=== PATIENT | female | born 1970 | race Caucasian/White ===

== ENCOUNTER 2019-12-25 20:16 | Emergency (ER) | payer MEDICAID ==
[~2019-12-25] VITALS: Ht 167.6 cm; Wt 65.9 kg
[2019-12-25 20:23] VITALS: BP 144/110
[2019-12-25 22:57] LABS: MEAN PLATELET VOLUME 8.1 FL (7.4-10.4); WHITE BLOOD COUNT 4.2 X10'3 (4.5-11.0)
[2019-12-25 22:59] LABS: ALANINE AMINOTRANSFERASE 50 U/L (12-78); ALBUMIN 3.7 G/DL (3.4-5.0); ALBUMIN/GLOBULIN RATIO 0.9 (1.1-1.5); ALKALINE PHOSPHATASE 96 IU/L (46-116); ANION GAP 14 (8-16); ASPARTATE AMINO TRANSFERASE 64 U/L (10-37); BILIRUBIN,TOTAL 0.5 MG/DL (0.1-1.0); BLOOD UREA NITROGEN 11 MG/DL (7-18); BUN/CREATININE RATIO 17.7 (6.6-38.0); CALCIUM 8.1 MG/DL (8.5-10.1); CHLORIDE 102 MMOL/L (99-107); CREATININE 0.62 MG/DL (0.40-0.90); GLUCOSE 87 MG/DL (70-104); HEMATOCRIT 41.3 % (35.0-45.0); MEAN CORPUSCULAR HEMOGLOBIN 32.4 PG (27.0-31.0); MEAN CORPUSCULAR HGB CONC 33.8 g/dL (33.0-36.5); MEAN CORPUSCULAR VOLUME 95.8 FL (78-98); PLATELET COUNT 83 X10'3 (140-440); POTASSIUM 4.2 MMOL/L (3.5-5.1); RED BLOOD COUNT 4.31 X10'6 (4.20-5.60); RED CELL DISTRIBUTION WIDTH 16.2 % (11.5-14.5); SODIUM 137 MMOL/L (135-145); TOTAL CARBON DIOXIDE 21.2 MMOL/L (24-32); eGFR > 90 ML/MIN
[2019-12-25 23:17] LABS: ANISOCYTOSIS 1+; PLATELET ESTIMATE DECREASED; TOTAL CELLS COUNTED 100
== END 2019-12-25 22:42 | disposition home or self-care (01) ==
LOC: ER 20:17
DX: R23.3 Spontaneous ecchymoses (principal); R21 Rash and other nonspecific skin eruption; Z88.2 Allergy status to sulfonamides; Z88.8 Allergy status to other drugs, medicaments and biological substances
CPT/HCPCS: 36415; 80053; 85007; 85025; 85610; 99283

== ENCOUNTER 2021-03-08 04:28 | Emergency (ER) | payer MEDICAID ==
[~2021-03-08] VITALS: Ht 168.9 cm; Wt 65.9 kg
[2021-03-08 04:33] VITALS: BP 155/86
[2021-03-08] MEDS ORDERED: normal saline 1000ML IV soln IVB STA (04:59)
[2021-03-08] MEDS ORDERED: diphenhydrAMINE 50 mg/ml inj IV ONE (05:00)
[2021-03-08] MEDS ORDERED: famotidine/PF 10 mg/ml inj IV ONE (05:00)
[2021-03-08] MEDS ORDERED: epiNEPHrine 1 mg/ml inj SQ ONE (05:00)
[2021-03-08] MEDS: methylPREDNISolone sod succ 125mg/2ml vial IV ONE ×2 (05:11→05:48)
[2021-03-08] MEDS ORDERED: AMLO10TA48 PO (06:04)
== END 2021-03-08 06:20 | disposition home or self-care (01) ==
LOC: ER 04:28
DX: T78.3XXA Angioneurotic edema, initial encounter (principal); I10 Essential (primary) hypertension; J45.909 Unspecified asthma, uncomplicated; Z88.2 Allergy status to sulfonamides; Z88.8 Allergy status to other drugs, medicaments and biological substances
CPT/HCPCS: 96372; 96374; 96375; 99284; J0171; J1200; J3490; J7030; J2930

== ENCOUNTER 2021-07-03 21:59 | Inpatient (IN) | payer MEDICAID ==
[~2021-07-03] VITALS: Ht 167.6 cm; Wt 65.4 kg
[~2021-07-03 21:59] MED LIST: AMLO10TA48 PO
[2021-07-03 23:35] LABS: ALANINE AMINOTRANSFERASE 25 U/L (12-78); ALBUMIN 2.7 G/DL (3.4-5.0); ALBUMIN/GLOBULIN RATIO 0.6 (1.1-1.5); ALKALINE PHOSPHATASE 83 IU/L (46-116); ASPARTATE AMINO TRANSFERASE 57 U/L (10-37); BILIRUBIN,TOTAL 1.4 MG/DL (0.1-1.0); BLOOD UREA NITROGEN 10 MG/DL (7-18); BUN/CREATININE RATIO 6.3 (6.6-38.0); CALCIUM 6.2 MG/DL (8.5-10.1); CHLORIDE 64 MMOL/L (99-107); CREATININE 1.58 MG/DL (0.40-0.90); GLUCOSE 108 MG/DL (70-104); TOTAL PROTEIN 6.9 G/DL (6.4-8.2); eGFR 34 ML/MIN
[2021-07-03 23:50] LABS: ANION GAP -2 (8-16)
[2021-07-03 23:54] LABS: POTASSIUM 1.3 MMOL/L (3.5-5.1); SODIUM 110 MMOL/L (135-145); TOTAL CARBON DIOXIDE 48.4 MMOL/L (24-32)
[2021-07-04] VITALS (13 sets, daily range): BP systolic 104–140; BP diastolic 59–83
[2021-07-04 00:08] LABS: BASOPHILS % (AUTO) 0.1 % (0-1); EOSINOPHILS % (AUTO) 0.4 % (0-6); HEMATOCRIT 26.8 % (35.0-45.0); HEMOGLOBIN 9.7 g/dl (12.0-16.0); LYMPHOCYTES # (AUTO) 0.5 X10'3 (1.1-4.8); MEAN CORPUSCULAR HEMOGLOBIN 31.3 PG (27.0-31.0); MEAN CORPUSCULAR HGB CONC 36.1 g/dL (33.0-36.5); MEAN CORPUSCULAR VOLUME 86.7 FL (78-98); MEAN PLATELET VOLUME 9.1 FL (7.4-10.4); MONOCYTES # (AUTO) 0.6 X10'3 (0-0.9); MONOCYTES % (AUTO) 11.9 % (2-12); NEUTROPHILS % (AUTO) 78.6 % (42-75); PLATELET COUNT 138 X10'3 (140-440); RED BLOOD COUNT 3.09 X10'6 (4.20-5.60); RED CELL DISTRIBUTION WIDTH 14.9 % (11.5-14.5); WHITE BLOOD COUNT 5.1 X10'3 (4.5-11.0)
[2021-07-04 00:13] LABS: PLATELET ESTIMATE DECREASED
[2021-07-04 00:14] LABS: POLYCHROMASIA FEW; SPHEROCYTES FEW
[2021-07-04 00:15] LABS: LARGE PLATELETS FEW
[2021-07-04] MEDS ORDERED: potassium Cl 20 mEq SR tablet PO STA (01:17)
[2021-07-04] MEDS ORDERED: magnesium 2GM in 50ml NS 50 ML IV ONE ×2 (01:20→04:05)
--- NOTE | 2021-07-04 01:34 | NUR ---
PO MED GIVEN
[2021-07-04] MEDS ORDERED: LORazepam 2 mg/ml vial IV PRN (04:05)
[2021-07-04] MEDS ORDERED: morphine 4 MG/ML inj SYRINge IV PRN (04:05)
[2021-07-04] MEDS ORDERED: ondansetron/PF 4mg/2ml inj IV PRN (04:05)
[2021-07-04] MEDS ORDERED: acetaminophen 325mg tablet PO PRN (04:05)
[2021-07-04] MEDS ORDERED: ringers solution, lacted 1,000 ML IV SCH (04:05)
[2021-07-04] MEDS ORDERED: magnesium 4gm in 100ml NS 100 ML IV ONE (04:05)
[2021-07-04] MEDS ORDERED: morphine 2 MG/ML inj. syringe IV PRN (04:05)
[2021-07-04] MEDS ORDERED: magnesium hydroxide 30ml (MOM) UD suspension PO PRN (04:05)
[2021-07-04] MEDS ORDERED: dextrose 50%-water 50ml dispensing syringe IV PRN (04:05)
--- NOTE | 2021-07-04 04:15 | NUR ---
Per catalog specialist Dr. Song, the patient will need 120meq of Potassium and 8meq of mag.
[2021-07-04] MEDS ORDERED: CALCIUM GLUC 1gm/50ml NACL,iso 50 ML IV ONE (04:30)
[2021-07-04] MEDS ORDERED: HYDR12.55 PO ×2 (05:02→14:04)
[2021-07-04] MEDS ORDERED: LEVO88TA2 PO (05:02)
[2021-07-04 07:30] LABS: ALBUMIN 2.5 G/DL (3.4-5.0); BLOOD UREA NITROGEN 10 MG/DL (7-18); BUN/CREATININE RATIO 6.8 (6.6-38.0); CALCIUM 6.8 MG/DL (8.5-10.1); CHLORIDE 65 MMOL/L (99-107); CREATININE 1.48 MG/DL (0.40-0.90); GLUCOSE 112 MG/DL (70-104); MAGNESIUM 3.6 MG/DL (1.5-2.4); eGFR 37 ML/MIN
[2021-07-04 07:40] LABS: ANION GAP 0 (8-16)
[2021-07-04 07:46] LABS: POTASSIUM 1.1 MMOL/L (3.5-5.1); SODIUM 113 MMOL/L (135-145)
[2021-07-04 07:47] LABS: TOTAL CARBON DIOXIDE 47.9 MMOL/L (24-32)
--- NOTE | 2021-07-04 07:52 | NUR ---
call to dr banegas at this time to inform of critical lab value k 1.1 co2 47.9, na 113. No answer.
[2021-07-04] MEDS: POTASSIUM BICARB 20meq eff tab 20 MEQ TABLET.EFF PO PRN ×3 (08:01→20:37)
--- NOTE | 2021-07-04 08:16 | NUR ---
Telephone call from Dr Squires at this time, states to give 3% Na bolus followed by 20 ml/hr rate. Give 40 MEQ K IV per protocol, check NA q2 hrs, then q 4hr, CMP Q4hr. Addendum: 07/04/21 at 0957 by CERAZO DC LR @100 ML/HR.
[2021-07-04] MEDS ORDERED: sodium chloride 3% IV.soln 100 ML IV ONE (08:20)
[2021-07-04] MEDS ORDERED: potassium Cl 20mEq/100mL bag 100 ML IV ONE ×3 (08:30→12:15)
[2021-07-04] MEDS: K and/or MAG REPLACEMENT MC SCH (08:34)
[2021-07-04] MEDS: thiamine 100mg/ml 2ml inj. IV SCH ×3 (08:40→20:14)
[2021-07-04] MEDS: potassium Cl 20mEq/100mL bag 100 ML IV SCH ×2 (08:50→09:42)
[2021-07-04 09:09] LABS: AMYLASE 51 U/L (25-115); LIPASE 168 U/L (73-393)
[2021-07-04] MEDS: folic acid 1mg/0.2ml inj IV SCH (09:32)
[2021-07-04] MEDS: sodium chloride 3% IV.soln 100 ML IV SCH ×4 (10:01→20:13)
[2021-07-04 10:15] LABS: APTT 28 SECONDS (22-32)
[2021-07-04 10:34] LABS: CLARITY,URINE CLEAR (Clear); COLOR,URINE YELLOW (Yellow); GLUCOSE, URINE NEGATIVE (Neg); KETONES,URINE NEGATIVE (Neg); LEUKOCYTE ESTERASE ,URINE NEGATIVE (Neg); NITRITES, URINE NEGATIVE (Neg); OCCULT BLOOD,URINE MODERATE (Neg); PROTEIN,URINE NEGATIVE (Neg); UROBILINOGEN,URINE 0.2 E.U/dL (0.2-1.0)
[2021-07-04 10:36] LABS: UA COLLECTION TYPE STRAIGHT CATH
[2021-07-04 10:42] LABS: BACTERIA,URINE NONE SEEN /HPF (Neg); SQUAMOUS EPITHELIAL CELL,UR NONE SEEN /LPF (FEW); WBC,URINE 0-4 /HPF (0-4)
[2021-07-04 11:52] LABS: ALANINE AMINOTRANSFERASE 22 U/L (12-78); ALBUMIN 2.5 G/DL (3.4-5.0); ALBUMIN/GLOBULIN RATIO 0.6 (1.1-1.5); ALKALINE PHOSPHATASE 83 IU/L (46-116); ASPARTATE AMINO TRANSFERASE 53 U/L (10-37); BILIRUBIN,TOTAL 1.4 MG/DL (0.1-1.0); BLOOD UREA NITROGEN 9 MG/DL (7-18); BUN/CREATININE RATIO 5.9 (6.6-38.0); CALCIUM 6.9 MG/DL (8.5-10.1); CHLORIDE 71 MMOL/L (99-107); CREATININE 1.53 MG/DL (0.40-0.90); GLUCOSE 106 MG/DL (70-104); MAGNESIUM 3.6 MG/DL (1.5-2.4); TOTAL PROTEIN 6.6 G/DL (6.4-8.2); eGFR 36 ML/MIN
[2021-07-04 11:58] LABS: ANION GAP 2 (8-16)
[2021-07-04 12:05] LABS: POTASSIUM 1.4 MMOL/L (3.5-5.1); SODIUM 119 MMOL/L (135-145); TOTAL CARBON DIOXIDE 46.5 MMOL/L (24-32)
[2021-07-04] MEDS ORDERED: AMIT25TA9 PO (14:04)
[2021-07-04] MEDS ORDERED: PROP20TA6 PO (14:04)
[2021-07-04] MEDS ORDERED: LISI20TA28 PO (14:06)
[2021-07-04] MEDS ORDERED: ESCI-8 PO (14:06)
[2021-07-04] MEDS ORDERED: NORG-45 PO (14:07)
[2021-07-04 15:36] LABS: ALANINE AMINOTRANSFERASE 22 U/L (12-78); ALBUMIN 2.5 G/DL (3.4-5.0); ALBUMIN/GLOBULIN RATIO 0.6 (1.1-1.5); ALKALINE PHOSPHATASE 77 IU/L (46-116); ASPARTATE AMINO TRANSFERASE 49 U/L (10-37); BILIRUBIN,TOTAL 1.2 MG/DL (0.1-1.0); BLOOD UREA NITROGEN 9 MG/DL (7-18); BUN/CREATININE RATIO 5.6 (6.6-38.0); CALCIUM 6.8 MG/DL (8.5-10.1); CHLORIDE 76 MMOL/L (99-107); CREATININE 1.62 MG/DL (0.40-0.90); GLUCOSE 99 MG/DL (70-104); TOTAL PROTEIN 6.6 G/DL (6.4-8.2); eGFR 33 ML/MIN
[2021-07-04 15:47] LABS: ANION GAP -2 (8-16)
[2021-07-04 15:49] LABS: SODIUM 120 MMOL/L (135-145)
[2021-07-04 15:50] LABS: POTASSIUM 1.8 MMOL/L (3.5-5.1); TOTAL CARBON DIOXIDE 46 MMOL/L (24-32)
[2021-07-04] MEDS: potassium Cl 20mEq/100mL bag 100 ML IV PRN ×3 (16:13→20:16)
[2021-07-04 19:42] LABS: ALANINE AMINOTRANSFERASE 22 U/L (12-78); ALBUMIN 2.6 G/DL (3.4-5.0); ALBUMIN/GLOBULIN RATIO 0.6 (1.1-1.5); ALKALINE PHOSPHATASE 82 IU/L (46-116); ASPARTATE AMINO TRANSFERASE 49 U/L (10-37); BILIRUBIN,TOTAL 1.1 MG/DL (0.1-1.0); BLOOD UREA NITROGEN 9 MG/DL (7-18); BUN/CREATININE RATIO 5.4 (6.6-38.0); CALCIUM 6.9 MG/DL (8.5-10.1); CHLORIDE 79 MMOL/L (99-107); CREATININE 1.67 MG/DL (0.40-0.90); GLUCOSE 99 MG/DL (70-104); SODIUM 123 MMOL/L (135-145); TOTAL PROTEIN 6.8 G/DL (6.4-8.2); eGFR 32 ML/MIN
[2021-07-04 19:45] LABS: POTASSIUM 2.2 MMOL/L (3.5-5.1)
[2021-07-04 19:49] LABS: ANION GAP -3 (8-16)
[2021-07-04 19:52] LABS: TOTAL CARBON DIOXIDE 46.9 MMOL/L (24-32)
[2021-07-04] MEDS: enoxaparin 40mg/0.4ml syringe SQ SCH (20:14)
[2021-07-04] MEDS: potassium CL 10mEq/100ml bag 100 ML IV PRN ×3 (20:36→23:46)
[2021-07-04] MEDS: sodium chloride 3% IV.soln 500 ML IV SCH (21:24)
[2021-07-05] VITALS (24 sets, daily range): BP systolic 88–150; BP diastolic 49–100
[2021-07-05 00:14] LABS: ALANINE AMINOTRANSFERASE 23 U/L (12-78); ALBUMIN 2.6 G/DL (3.4-5.0); ALBUMIN/GLOBULIN RATIO 0.6 (1.1-1.5); ALKALINE PHOSPHATASE 78 IU/L (46-116); ASPARTATE AMINO TRANSFERASE 50 U/L (10-37); BLOOD UREA NITROGEN 8 MG/DL (7-18); BUN/CREATININE RATIO 4.7 (6.6-38.0); CALCIUM 7.1 MG/DL (8.5-10.1); CHLORIDE 82 MMOL/L (99-107); CREATININE 1.71 MG/DL (0.40-0.90); GLUCOSE 93 MG/DL (70-104); POTASSIUM 3.1 MMOL/L (3.5-5.1); SODIUM 129 MMOL/L (135-145); TOTAL PROTEIN 6.7 G/DL (6.4-8.2); eGFR 31 ML/MIN
[2021-07-05 00:17] LABS: ANION GAP 0 (8-16)
[2021-07-05 00:19] LABS: TOTAL CARBON DIOXIDE 46.7 MMOL/L (24-32)
--- NOTE | 2021-07-05 00:30 | NUR ---
Dr. Song was notified of Na: 129. ordered to hold 3% sodium chloride and to stop it immediately.
[2021-07-05] MEDS: potassium CL 10mEq/100ml bag 100 ML IV PRN ×3 (01:11→08:37)
[2021-07-05] MEDS: acetaminophen 325mg tablet PO PRN ×2 (02:51→22:37)
[2021-07-05 04:36] LABS: ALANINE AMINOTRANSFERASE 21 U/L (12-78); ALBUMIN 2.4 G/DL (3.4-5.0); ALBUMIN/GLOBULIN RATIO 0.6 (1.1-1.5); ALKALINE PHOSPHATASE 70 IU/L (46-116); ASPARTATE AMINO TRANSFERASE 44 U/L (10-37); BILIRUBIN,TOTAL 0.8 MG/DL (0.1-1.0); BLOOD UREA NITROGEN 8 MG/DL (7-18); BUN/CREATININE RATIO 4.1 (6.6-38.0); CALCIUM 7.1 MG/DL (8.5-10.1); CHLORIDE 84 MMOL/L (99-107); CREATININE 1.93 MG/DL (0.40-0.90); GLUCOSE 125 MG/DL (70-104); MAGNESIUM 2.8 MG/DL (1.5-2.4); SODIUM 129 MMOL/L (135-145); TOTAL PROTEIN 6.3 G/DL (6.4-8.2); eGFR 27 ML/MIN
[2021-07-05 04:41] LABS: POTASSIUM 2.3 MMOL/L (3.5-5.1)
[2021-07-05 04:42] LABS: ANION GAP 0 (8-16); TOTAL CARBON DIOXIDE 44.9 MMOL/L (24-32)
[2021-07-05] MEDS ORDERED: potassium phosphate inj 30 MMOL in normal saline 500ml IV soln 500 ML IV ONE (04:45)
[2021-07-05] MEDS: POTASSIUM BICARB 20meq eff tab 20 MEQ TABLET.EFF PO PRN ×3 (04:50→22:36)
[2021-07-05 05:47] LABS: BASOPHILS % (AUTO) 0.3 % (0-1); EOSINOPHILS % (AUTO) 0.5 % (0-6); HEMATOCRIT 26.9 % (35.0-45.0); HEMOGLOBIN 9.4 g/dl (12.0-16.0); LYMPHOCYTES # (AUTO) 0.7 X10'3 (1.1-4.8); LYMPHOCYTES % (AUTO) 17.2 % (21-51); MEAN CORPUSCULAR HEMOGLOBIN 31.6 PG (27.0-31.0); MEAN CORPUSCULAR VOLUME 90.3 FL (78-98); MEAN PLATELET VOLUME 9.5 FL (7.4-10.4); MONOCYTES # (AUTO) 0.3 X10'3 (0-0.9); MONOCYTES % (AUTO) 8.9 % (2-12); NEUTROPHILS # (AUTO) 2.8 X10'3 (1.8-7.7); NEUTROPHILS % (AUTO) 73.1 % (42-75); PLATELET COUNT 135 X10'3 (140-440); RED BLOOD COUNT 2.98 X10'6 (4.20-5.60); RED CELL DISTRIBUTION WIDTH 14.8 % (11.5-14.5); WHITE BLOOD COUNT 3.8 X10'3 (4.5-11.0)
[2021-07-05] MEDS: K and/or MAG REPLACEMENT MC SCH (08:00)
[2021-07-05] MEDS: thiamine 100mg/ml 2ml inj. IV SCH ×3 (08:36→20:12)
[2021-07-05] MEDS: Potassium Cl inj 20 MEQ in dextrose 5%-water 990 ML IV SCH ×2 (10:34→18:35)
[2021-07-05] MEDS: folic acid 1mg/0.2ml inj IV SCH (11:11)
[2021-07-05 12:44] LABS: ALANINE AMINOTRANSFERASE 19 U/L (12-78); ALBUMIN 2.3 G/DL (3.4-5.0); ALBUMIN/GLOBULIN RATIO 0.6 (1.1-1.5); ALKALINE PHOSPHATASE 67 IU/L (46-116); ANION GAP 1 (8-16); ASPARTATE AMINO TRANSFERASE 50 U/L (10-37); BILIRUBIN,TOTAL 0.6 MG/DL (0.1-1.0); BLOOD UREA NITROGEN 8 MG/DL (7-18); BUN/CREATININE RATIO 4.4 (6.6-38.0); CALCIUM 6.9 MG/DL (8.5-10.1); CHLORIDE 86 MMOL/L (99-107); CREATININE 1.83 MG/DL (0.40-0.90); GLUCOSE 109 MG/DL (70-104); MAGNESIUM 2.4 MG/DL (1.5-2.4); PHOSPHORUS 3.7 MG/DL (2.3-4.5); SODIUM 131 MMOL/L (135-145); TOTAL PROTEIN 6.2 G/DL (6.4-8.2); eGFR 29 ML/MIN
[2021-07-05 12:48] LABS: TOTAL CARBON DIOXIDE 44.2 MMOL/L (24-32)
[2021-07-05] MEDS: pantoprazole 40mg Tablet.DR PO SCH (15:53)
--- NOTE | 2021-07-05 18:30 | NUR ---
MD came to see patient K at 4.0, phos at 3.7. MD ordered to stop KCl in D5W drip.
[2021-07-05] MEDS: enoxaparin 40mg/0.4ml syringe SQ SCH (20:13)
[2021-07-05 21:57] LABS: ALANINE AMINOTRANSFERASE 19 U/L (12-78); ALBUMIN 2.3 G/DL (3.4-5.0); ALBUMIN/GLOBULIN RATIO 0.6 (1.1-1.5); ALKALINE PHOSPHATASE 66 IU/L (46-116); ANION GAP -2 (8-16); ASPARTATE AMINO TRANSFERASE 28 U/L (10-37); BILIRUBIN,TOTAL 0.6 MG/DL (0.1-1.0); BLOOD UREA NITROGEN 8 MG/DL (7-18); BUN/CREATININE RATIO 4.1 (6.6-38.0); CALCIUM 6.6 MG/DL (8.5-10.1); CHLORIDE 90 MMOL/L (99-107); CREATININE 1.93 MG/DL (0.40-0.90); GLUCOSE 100 MG/DL (70-104); POTASSIUM 3.1 MMOL/L (3.5-5.1); SODIUM 131 MMOL/L (135-145); eGFR 27 ML/MIN
[2021-07-05 22:03] LABS: TOTAL CARBON DIOXIDE 43.3 MMOL/L (24-32)
[2021-07-05] MEDS: sodium chloride 3% IV.soln 500 ML IV SCH (22:24)
[2021-07-06] VITALS (12 sets, daily range): BP systolic 104–138; BP diastolic 52–89
[2021-07-06] MEDS: POTASSIUM BICARB 20meq eff tab 20 MEQ TABLET.EFF PO PRN ×2 (02:40→07:17)
[2021-07-06] MEDS ORDERED: LORazepam 1 MG tablet PO PRN (04:05)
[2021-07-06] MEDS ORDERED: LORazepam 2 mg/ml vial IV PRN (04:05)
[2021-07-06] MEDS: acetaminophen 325mg tablet PO PRN (04:46)
[2021-07-06 04:53] LABS: BASOPHILS % (AUTO) 0.9 % (0-1); EOSINOPHILS # (AUTO) 0.1 X10'3 (0-0.9); EOSINOPHILS % (AUTO) 3.3 % (0-6); HEMATOCRIT 26.5 % (35.0-45.0); LYMPHOCYTES # (AUTO) 1.1 X10'3 (1.1-4.8); MEAN CORPUSCULAR HEMOGLOBIN 31.5 PG (27.0-31.0); MEAN CORPUSCULAR VOLUME 92.5 FL (78-98); MONOCYTES # (AUTO) 0.3 X10'3 (0-0.9); MONOCYTES % (AUTO) 10.3 % (2-12); NEUTROPHILS # (AUTO) 1.1 X10'3 (1.8-7.7); NEUTROPHILS % (AUTO) 42.5 % (42-75); PLATELET COUNT 172 X10'3 (140-440); RED BLOOD COUNT 2.86 X10'6 (4.20-5.60); RED CELL DISTRIBUTION WIDTH 14.7 % (11.5-14.5); WHITE BLOOD COUNT 2.6 X10'3 (4.5-11.0)
[2021-07-06 04:58] LABS: MAGNESIUM 1.7 MG/DL (1.5-2.4); PHOSPHORUS 2.4 MG/DL (2.3-4.5); POTASSIUM 3.3 MMOL/L (3.5-5.1)
[2021-07-06 05:53] LABS: TOTAL CELLS COUNTED 100
[2021-07-06 05:54] LABS: EOSINOPHILS % (MANUAL) 4 % (0-6); LYMPHOCYTES % (MANUAL) 44 % (21-51); MONOCYTES % (MANUAL) 7 % (2-12); NEUTROPHILS % (MANUAL) 45 % (42-75)
[2021-07-06 05:55] LABS: GIANT PLATELET FEW; PLATELET ESTIMATE NORMAL
[2021-07-06 06:33] LABS: ALANINE AMINOTRANSFERASE 18 U/L (12-78); ALBUMIN 2.4 G/DL (3.4-5.0); ALBUMIN/GLOBULIN RATIO 0.6 (1.1-1.5); ALKALINE PHOSPHATASE 67 IU/L (46-116); ANION GAP 1 (8-16); ASPARTATE AMINO TRANSFERASE 30 U/L (10-37); BILIRUBIN,TOTAL 0.6 MG/DL (0.1-1.0); BLOOD UREA NITROGEN 8 MG/DL (7-18); BUN/CREATININE RATIO 4.2 (6.6-38.0); CHLORIDE 89 MMOL/L (99-107); CREATININE 1.92 MG/DL (0.40-0.90); GLUCOSE 82 MG/DL (70-104); SODIUM 133 MMOL/L (135-145); TOTAL PROTEIN 6.2 G/DL (6.4-8.2); eGFR 28 ML/MIN
[2021-07-06 06:35] LABS: TOTAL CARBON DIOXIDE 42.7 MMOL/L (24-32)
[2021-07-06] MEDS: pantoprazole 40mg Tablet.DR PO SCH (07:16)
[2021-07-06] MEDS: thiamine 100mg/ml 2ml inj. IV SCH ×3 (07:17→22:06)
[2021-07-06] MEDS: folic acid 1mg/0.2ml inj IV SCH (07:23)
[2021-07-06] MEDS: K and/or MAG REPLACEMENT MC SCH (07:28)
--- NOTE | 2021-07-06 11:55 | NUR ---
Report given to charge nurse Kezia JORDAN
--- NOTE | 2021-07-06 12:57 | NUR ---
RECCEIVED REPORT, ASSUMED CARE. PT ALERT AND ORIENTED X4. CALL LIGHT IN REACH, BED LOW. VS STABLE
--- NOTE | 2021-07-06 18:10 | NUR ---
Patient in room PCU 3008. I have received report from NIKKI Fairbanks and had the opportunity to ask questions and assume patient care.
[2021-07-06] MEDS ORDERED: amitriptyline 25mg tablet PO SCH (21:00)
[2021-07-06] MEDS: enoxaparin 40mg/0.4ml syringe SQ SCH (22:05)
[2021-07-06] MEDS: propranolol 10mg tablet PO SCH (22:06)
[2021-07-07 02:00] VITALS: BP 135/69
[2021-07-07 06:29] LABS: BASOPHILS % (AUTO) 1.2 % (0-1); EOSINOPHILS # (AUTO) 0.1 X10'3 (0-0.9); EOSINOPHILS % (AUTO) 2.9 % (0-6); HEMOGLOBIN 9.8 g/dl (12.0-16.0); LYMPHOCYTES # (AUTO) 1.5 X10'3 (1.1-4.8); LYMPHOCYTES % (AUTO) 49.9 % (21-51); MEAN CORPUSCULAR HEMOGLOBIN 32.8 PG (27.0-31.0); MEAN CORPUSCULAR VOLUME 93.6 FL (78-98); MEAN PLATELET VOLUME 8.7 FL (7.4-10.4); MONOCYTES # (AUTO) 0.4 X10'3 (0-0.9); MONOCYTES % (AUTO) 12.7 % (2-12); NEUTROPHILS % (AUTO) 33.3 % (42-75); PLATELET COUNT 221 X10'3 (140-440); RED BLOOD COUNT 2.99 X10'6 (4.20-5.60); RED CELL DISTRIBUTION WIDTH 15.2 % (11.5-14.5); WHITE BLOOD COUNT 3.1 X10'3 (4.5-11.0)
--- NOTE | 2021-07-07 06:29 | NUR ---
Patient in room PCU 3008. I have received report from Raya JORDAN and had the opportunity to ask questions and assume patient care.
[2021-07-07 06:37] LABS: MAGNESIUM 1.4 MG/DL (1.5-2.4); PHOSPHORUS 2.7 MG/DL (2.3-4.5); POTASSIUM 3.4 MMOL/L (3.5-5.1)
[2021-07-07 07:00] VITALS: BP 131/81
--- NOTE | 2021-07-07 07:03 | NUR ---
Problems reprioritized. Patient report given, questions answered & plan of care reviewed with NIKKI Oliver.
[2021-07-07] MEDS ORDERED: ESCITALOPRAM OXALATE 5 MG TABLET PO SCH (08:00)
[2021-07-07] MEDS ORDERED: NORGESTIMATE ETHINYL ESTRADIOL PO SCH (08:00)
[2021-07-07] MEDS ORDERED: levoTHYROXINE 88mcg tablet PO SCH (08:00)
[2021-07-07 08:31] LABS: ALANINE AMINOTRANSFERASE 19 U/L (12-78); ALBUMIN 2.7 G/DL (3.4-5.0); ALBUMIN/GLOBULIN RATIO 0.6 (1.1-1.5); ALKALINE PHOSPHATASE 69 IU/L (46-116); ANION GAP 9 (8-16); ASPARTATE AMINO TRANSFERASE 27 U/L (10-37); BILIRUBIN,TOTAL 0.6 MG/DL (0.1-1.0); BLOOD UREA NITROGEN 9 MG/DL (7-18); CALCIUM 7.7 MG/DL (8.5-10.1); CHLORIDE 93 MMOL/L (99-107); CREATININE 2.26 MG/DL (0.40-0.90); GLUCOSE 76 MG/DL (70-104); SODIUM 138 MMOL/L (135-145); TOTAL CARBON DIOXIDE 36.2 MMOL/L (24-32); TOTAL PROTEIN 7.1 G/DL (6.4-8.2); eGFR 23 ML/MIN
[2021-07-07] MEDS: pantoprazole 40mg Tablet.DR PO SCH (09:56)
[2021-07-07] MEDS: propranolol 10mg tablet PO SCH (09:57)
[2021-07-07] MEDS: POTASSIUM BICARB 20meq eff tab 20 MEQ TABLET.EFF PO PRN ×2 (09:58→13:35)
[2021-07-07] MEDS ORDERED: magnesium Cl slow-release 64mg tablet PO SCH (10:25)
[2021-07-07] MEDS ORDERED: MAGN200T PO (10:28)
[2021-07-07] MEDS ORDERED: POTA10TA37 PO (10:28)
[2021-07-07 11:00] VITALS: BP 139/92
--- NOTE | 2021-07-07 13:48 | NUR ---
patient VSS, no c/o pain or N/V. Seen by Dr marte is for DC. All DC instructions given to patient and spouse. pqatient DC home via private car to home in stable condition.
[2021-07-08] MEDS ORDERED: LORazepam 1 MG tablet PO PRN (04:05)
[2021-07-08] MEDS ORDERED: LORazepam 2 mg/ml vial IV PRN (04:05)
[2021-07-08] MEDS ORDERED: folic acid 1mg tablet PO SCH (08:00)
[2021-07-08] MEDS ORDERED: thiamine 100mg tablet PO SCH (08:00)
== END 2021-07-07 14:02 | disposition home or self-care (01) | DRG 426 ==
LOC: ER 21:59 → ED HOLD 07-04 04:16 → COVID IP 07-04 10:55 → CICU 2S 07-04 11:12 → PCU 3S 07-06 12:48
PROVIDERS: ADMIT Internal Medicine Critical Care Medicine; ATTEND Internal Medicine Critical Care Medicine
DX: E87.1 Hypo-osmolality and hyponatremia (principal); N17.0 Acute kidney failure with tubular necrosis; U07.1 COVID-19; D69.6 Thrombocytopenia, unspecified; E87.3 Alkalosis; D63.8 Anemia in other chronic diseases classified elsewhere; I95.9 Hypotension, unspecified; E83.39 Other disorders of phosphorus metabolism; E03.9 Hypothyroidism, unspecified; E83.42 Hypomagnesemia; I12.9 Hypertensive chronic kidney disease with stage 1 through stage 4 chronic kidney disease, or unspecified chronic kidney disease; J45.909 Unspecified asthma, uncomplicated; N18.9 Chronic kidney disease, unspecified; F32.A Depression, unspecified; R19.7 Diarrhea, unspecified; R25.1 Tremor, unspecified; T50.2X5A Adverse effect of carbonic-anhydrase inhibitors, benzothiadiazides and other diuretics, initial encounter; E87.6 Hypokalemia; E87.8 Other disorders of electrolyte and fluid balance, not elsewhere classified; Z88.2 Allergy status to sulfonamides; Z88.8 Allergy status to other drugs, medicaments and biological substances; Z79.899 Other long term (current) drug therapy; Y92.89 Other specified places as the place of occurrence of the external cause
CPT/HCPCS: 36415; 70450; 71045; 74176; 80048; 80053; 81001; 82140; 82150; 82570; 82948; 83605; 83690; 83735; 83880; 83935; 84100; 84133; 84295; 84300; 85007; 85008; 85025; 85610; 85730; 87040; 87635; 99291; C9803; G0378; J0610; J1650; J2060; J2270; J3411; J3475; J3480; J3490; J7040; J7070; J7120; J7131